=== PATIENT | female | born 1940 | race African-American/Black ===

== ENCOUNTER 2019-10-08 17:17 | Inpatient (IN) | payer MEDICARE, MEDICAID ==
[~2019-10-08] VITALS: Ht 167.6 cm; Wt 91.2 kg
[2019-10-08 19:20] LABS: HEMATOCRIT. 32.5 % (36.0-48.0); HEMOGLOBIN. 10.6 g/dL (12.0-16.0); MEAN CORPUSCULAR HEMOGLOBIN 27.9 pg (28.0-32.0); MEAN CORPUSCULAR VOLUME 86.1 fL (81.0-99.0); MEAN PLATELET VOLUME 6.9 fl (7.4-10.4); PLATELET 268 x1000/uL (130-400); RED BLOOD CELL COUNT 3.78 mill/uL (4.2-5.4); RED CELL DISTRIBUTION WIDTH 14.4 % (11.6-14.6)
[2019-10-08 19:24] LABS: CHLORIDE 109 mEq/L (98-107)
[2019-10-08 19:39] LABS: PLATELET ESTIMATE NORMAL
[2019-10-08] MEDS ORDERED: SODIUM CHLORIDE 0.9% 1,000 ML IV ONE (20:30)
[2019-10-08] MEDS ORDERED: MAGNESIUM/ALUMINUM HYDROXIDE/SIMETHICONE 30ML UDC PO PRN (21:45)
[2019-10-08] MEDS ORDERED: CLONIDINE 0.1MG TABLET PO PRN (21:45)
[2019-10-08] MEDS ORDERED: ONDANSETRON HCL 4MG/2ML INJ IV PRN (21:45)
[2019-10-08] MEDS ORDERED: IPRATROPIUM/ALBUTEROL 0.5-3(2.5)MG/3ML NEB NEB PRN (21:45)
[2019-10-08] MEDS ORDERED: SODIUM CHLORIDE 0.9% 1,000 ML IV SCH (22:30)
[2019-10-08 23:00] VITALS: BP 138/59
[2019-10-09] VITALS: BP 138/59
[2019-10-09] MEDS: ACETAMINOPHEN 325MG TABLET PO PRN (00:26)
[2019-10-09] MEDS: ENOXAPARIN 30MG/0.3ML SYR SUBCUT SCH ×2 (00:27→21:06)
[2019-10-09] MEDS ORDERED: SODIUM POLYSTYRENE SULFONATE 15 G/60 ML BOT PO SCH (01:15)
[2019-10-09] MEDS ORDERED: METF-414 PO (03:27)
[2019-10-09] MEDS ORDERED: ABILIFY PO (03:27)
[2019-10-09] MEDS ORDERED: GABA-290 PO (03:28)
[2019-10-09 04:00] VITALS: BP 120/61
[2019-10-09 06:44] LABS: HEMATOCRIT. 33.4 % (36.0-48.0); HEMOGLOBIN. 10.9 g/dL (12.0-16.0); MEAN CORPUSCULAR HEMOGLOBIN 28.5 pg (28.0-32.0); MEAN CORPUSCULAR VOLUME 87.4 fL (81.0-99.0); MEAN PLATELET VOLUME 7.3 fl (7.4-10.4); PLATELET 238 x1000/uL (130-400); RED BLOOD CELL COUNT 3.82 mill/uL (4.2-5.4); RED CELL DISTRIBUTION WIDTH 14.3 % (11.6-14.6)
[2019-10-09 08:00] VITALS: BP 117/44
[2019-10-09 12:00] VITALS: BP 141/79
[2019-10-09] MEDS: OLANZAPINE 10MG TABLET PO SCH (12:28)
[2019-10-09] MEDS: CITRIC ACID/SODIUM CITRATE SOLN 30ML UDC PO SCH ×2 (12:28→17:12)
[2019-10-09] MEDS: FLUOXETINE HCL 10 MG CAPSULE PO SCH (12:28)
[2019-10-09 16:00] VITALS: BP 148/70
[2019-10-09 20:00] VITALS: BP 134/64
[2019-10-09] MEDS: ATORVASTATIN CALCIUM 40MG TABLET PO SCH (21:06)
[2019-10-09] MEDS: TRAMADOL 50MG TABLET PO PRN (21:07)
[2019-10-10] VITALS: BP 136/63
[2019-10-10 04:00] VITALS: BP 149/74
[2019-10-10 04:47] LABS: PLATELET ESTIMATE NORMAL
[2019-10-10 06:11] LABS: PHOSPHORUS 4.1 mg/dL (2.5-4.9)
[2019-10-10 06:41] LABS: HEMATOCRIT. 29.4 % (36.0-48.0); HEMOGLOBIN. 9.6 g/dL (12.0-16.0); MEAN CORPUSCULAR HEMOGLOBIN 28.3 pg (28.0-32.0); MEAN CORPUSCULAR VOLUME 86.3 fL (81.0-99.0); MEAN PLATELET VOLUME 7.2 fl (7.4-10.4); PLATELET 243 x1000/uL (130-400)
[2019-10-10 08:00] VITALS: BP_SYST 150; BP_SYST 86; BP_DIAS 86
[2019-10-10] MEDS: OLANZAPINE 10MG TABLET PO SCH (09:22)
[2019-10-10] MEDS: FLUOXETINE HCL 10 MG CAPSULE PO SCH (09:22)
[2019-10-10] MEDS: NIFEDIPINE XL 30MG TAB PO SCH (09:22)
[2019-10-10] MEDS: CITRIC ACID/SODIUM CITRATE SOLN 30ML UDC PO SCH (09:22)
[2019-10-10 11:06] LABS: ATYPICAL LYMPHOCYTES 1
[2019-10-10 11:07] LABS: PLATELET ESTIMATE NORMAL
[2019-10-10 12:32] VITALS: BP 166/75
[2019-10-10 16:00] VITALS: BP 146/78
[2019-10-10] MEDS: ACETAMINOPHEN 325MG TABLET PO PRN ×2 (16:06→23:05)
[2019-10-10 20:00] VITALS: BP 143/70
[2019-10-10] MEDS: ENOXAPARIN 30MG/0.3ML SYR SUBCUT SCH (20:29)
[2019-10-10] MEDS: ATORVASTATIN CALCIUM 40MG TABLET PO SCH (20:29)
[2019-10-11] VITALS (7 sets, daily range): BP systolic 144–158; BP diastolic 63–81
[2019-10-11] MEDS: TRAMADOL 50MG TABLET PO PRN ×3 (01:06→16:36)
[2019-10-11 07:08] LABS: HEMATOCRIT. 30.8 % (36.0-48.0); MEAN CORPUSCULAR HEMOGLOBIN 27.8 pg (28.0-32.0); MEAN CORPUSCULAR VOLUME 85.5 fL (81.0-99.0); MEAN PLATELET VOLUME 6.8 fl (7.4-10.4); PLATELET 268 x1000/uL (130-400); RED CELL DISTRIBUTION WIDTH 14.1 % (11.6-14.6)
[2019-10-11] MEDS: CITRIC ACID/SODIUM CITRATE SOLN 30ML UDC PO SCH (08:53)
[2019-10-11] MEDS: NIFEDIPINE XL 30MG TAB PO SCH (08:53)
[2019-10-11] MEDS: FLUOXETINE HCL 10 MG CAPSULE PO SCH (08:53)
[2019-10-11] MEDS: OLANZAPINE 10MG TABLET PO SCH (08:55)
[2019-10-11 10:24] LABS: PLATELET ESTIMATE NORMAL
[2019-10-11] MEDS: HYDROCODONE/ACETAMINOPHEN 5/325MG TABLET PO PRN ×2 (18:44→23:09)
[2019-10-11 18:53] LABS: CLARITY URINE CLEAR (CLEAR); COLOR URINE YELLOW (YELLOW); KETONES URINE NEGATIVE (NEGATIVE); LEUKOCYTE ESTERASE URINE TRACE (NEGATIVE); NITRITE URINE NEGATIVE (NEGATIVE); OCCULT BLOOD URINE 1+ (NEGATIVE); PH URINE 5.5 (4.5-8.0); PROTEIN URINE 1+ (NEGATIVE); SPECIFIC GRAVITY URINE 1.012 (1.005-1.030); UROBILINOGEN URINE 0.2 E.U./dL (0.2-1.0)
[2019-10-11] MEDS: ENOXAPARIN 30MG/0.3ML SYR SUBCUT SCH (22:01)
[2019-10-11] MEDS: ATORVASTATIN CALCIUM 40MG TABLET PO SCH (22:01)
[2019-10-12 04:00] VITALS: BP 126/84
[2019-10-12] MEDS: HYDROCODONE/ACETAMINOPHEN 5/325MG TABLET PO PRN (06:34)
[2019-10-12 08:00] VITALS: BP 130/58
[2019-10-12] MEDS: OLANZAPINE 10MG TABLET PO SCH (08:43)
[2019-10-12] MEDS: CITRIC ACID/SODIUM CITRATE SOLN 30ML UDC PO SCH (08:44)
[2019-10-12] MEDS: FLUOXETINE HCL 10 MG CAPSULE PO SCH (08:44)
[2019-10-12] MEDS: NIFEDIPINE XL 30MG TAB PO SCH (08:44)
[2019-10-12 09:16] VITALS: BP 130/58
[2019-10-12 12:00] VITALS: BP 158/74
== END 2019-10-12 17:08 | disposition home or self-care (01) | DRG 683 ==
LOC: ER 17:17 → 7WST 20:25 → ENRESERV 21:00
PROVIDERS: ADMIT Family Medicine Adult Medicine; ATTEND Family Medicine Adult Medicine
DX: N17.0 Acute kidney failure with tubular necrosis (principal); E87.2 Acidosis; I12.9 Hypertensive chronic kidney disease with stage 1 through stage 4 chronic kidney disease, or unspecified chronic kidney disease; E78.5 Hyperlipidemia, unspecified; N18.3 Chronic kidney disease, stage 3 (moderate); M17.0 Bilateral primary osteoarthritis of knee; E11.22 Type 2 diabetes mellitus with diabetic chronic kidney disease; F32.9 Major depressive disorder, single episode, unspecified; E87.5 Hyperkalemia; R60.0 Localized edema
CPT/HCPCS: 36415; 71045; 76770; 80048; 81003; 84100; 84132; 84443; 86850; 86900; 93005; 93306; 96360; 97162; 97530; 99285; J1650; J7030